=== PATIENT | female | born 1995 | race Caucasian/White ===

== ENCOUNTER 2020-04-18 09:44 | Outpatient (REF) | payer MEDICAID, SELFPAY ==
[2020-04-19 10:07] LABS: BV Int Neg Control Negative (Negative); BV Int Pos Control Positive (Positive)
[2020-04-23 11:36] LABS: CT PCR NOT DETECTED (Not Detect.); NG PCR NOT DETECTED (Not Detect.)
== END 2020-04-18 09:45 | disposition home or self-care (01) ==
LOC: HO.LAB 09:44
PROVIDERS: Visit Provider Advanced Practice Midwife
DX: N76.0 Acute vaginitis (principal); B96.89 Other specified bacterial agents as the cause of diseases classified elsewhere; Z11.8 Encounter for screening for other infectious and parasitic diseases; Z11.3 Encounter for screening for infections with a predominantly sexual mode of transmission
CPT/HCPCS: 87480; 87491; 87510; 87591; 87660; 99212

== ENCOUNTER → 2020-04-22 15:35 | Outpatient (BNVA) | payer MEDICAID, SELFPAY | PROVIDERS: Visit Provider Advanced Practice Midwife | DX: Z30.42 Encounter for surveillance of injectable contraceptive (principal) | CPT/HCPCS: 96372; J1050 ==

== ENCOUNTER 2021-12-07 21:14 | Emergency (ER) | payer MEDICAID, SELFPAY ==
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
[2021-12-07 21:16] VITALS: BP 160/80; PULSE 84; O2SAT 100
[2021-12-07 21:22] VITALS: BP 108/64; PULSE 69; RESP 24; TEMP 36.3; O2SAT 100; BMI 40.2
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
[2021-12-08] MEDS: Cyclobenzaprine HCl 10 MG TABLET PO (00:26)
== END 2021-12-08 01:20 | disposition home or self-care (01) ==
PROVIDERS: Emergency Provider Internal Medicine
DX: S13.4XXA Sprain of ligaments of cervical spine, initial encounter (principal); S29.9XXA Unspecified injury of thorax, initial encounter; R51.9 Headache, unspecified; M54.2 Cervicalgia; M79.10 Myalgia, unspecified site; M54.50 Low back pain, unspecified; V43.52XA Car driver injured in collision with other type car in traffic accident, initial encounter; Y93.9 Activity, unspecified; Y92.410 Unspecified street and highway as the place of occurrence of the external cause; Y99.9 Unspecified external cause status; Z79.899 Other long term (current) drug therapy
CPT/HCPCS: 70450; 72070; 72100; 72125; 96372; 99283; 99284; J1885

== ENCOUNTER 2022-07-24 13:30 | Outpatient (REF) | payer MEDICAID, SELFPAY ==
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
== END 2022-07-24 13:31 | disposition home or self-care (01) ==
LOC: HO.US 13:30
PROVIDERS: PCP Registered Nurse; Visit Provider Family Medicine
DX: R10.2 Pelvic and perineal pain (principal)
CPT/HCPCS: 76830; 76856

== ENCOUNTER 2023-09-27 09:50 | Outpatient (REF) | payer MEDICAID, SELFPAY ==
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
== END 2023-09-27 09:51 | disposition home or self-care (01) ==
LOC: HO.XRAY 09:50
PROVIDERS: PCP Registered Nurse; Visit Provider Chiropractor
DX: M99.01 Segmental and somatic dysfunction of cervical region (principal)
CPT/HCPCS: 72050

== ENCOUNTER 2024-02-01 10:35 | Outpatient (REF) | payer MEDICAID, SELFPAY ==
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
== END 2024-02-01 10:36 | disposition home or self-care (01) ==
LOC: HO.XRAY 10:35
PROVIDERS: PCP Registered Nurse; Visit Provider Student in an Organized Health Care Education/Training Program
DX: M79.641 Pain in right hand (principal)
CPT/HCPCS: 73120